=== PATIENT | female | born 1970 | race Caucasian/White ===

== ENCOUNTER 2019-03-18 13:22 | Outpatient (CLI) | payer OTHER | END 2019-03-18 13:28 | disposition home or self-care (01) | LOC: MAMO-SONO 13:22 | DX: Z12.31 Encounter for screening mammogram for malignant neoplasm of breast (principal) ==

== ENCOUNTER 2020-02-07 15:38 | Inpatient (IN) | payer OTHER ==
[~2020-02-07] VITALS: Ht 160 cm; Wt 72.6 kg
== END 2020-02-12 18:59 | disposition home or self-care (01) | DRG 743 ==
LOC: LAB 15:38 → EDSTATUS 18:01 → SURG 18:37
PROVIDERS: Obstetrics & Gynecology Gynecologic Oncology; ADMIT Internal Medicine; ATTEND Internal Medicine
PROC: 0UT70ZZ Resection of Bilateral Fallopian Tubes, Open Approach (ICD-10-PCS; 2020-02-10)
PROC: 0UT20ZZ Resection of Bilateral Ovaries, Open Approach (ICD-10-PCS; 2020-02-10)
PROC: 0DBU0ZZ Excision of Omentum, Open Approach (ICD-10-PCS; 2020-02-10)
PROC: 0UT90ZZ Resection of Uterus, Open Approach (ICD-10-PCS; principal; 2020-02-10 14:15)
DX: D25.1 Intramural leiomyoma of uterus (principal); D25.0 Submucous leiomyoma of uterus; K66.8 Other specified disorders of peritoneum; D64.9 Anemia, unspecified; N72 Inflammatory disease of cervix uteri; N83.12 Corpus luteum cyst of left ovary; N83.11 Corpus luteum cyst of right ovary; N83.8 Other noninflammatory disorders of ovary, fallopian tube and broad ligament

== ENCOUNTER 2020-09-06 10:32 | Outpatient (CLI) | payer OTHER | END 2020-09-06 10:51 | disposition home or self-care (01) | LOC: MAMO-SONO 10:32 | PROVIDERS: ATTEND Obstetrics & Gynecology Gynecologic Oncology | DX: Z12.31 Encounter for screening mammogram for malignant neoplasm of breast (principal); N60.01 Solitary cyst of right breast ==

== ENCOUNTER → 2021-01-31 10:20 | Outpatient (CLI) | payer OTHER | END | disposition home or self-care (01) | LOC: NUCLEAR 10:00 | DX: C50.811 Malignant neoplasm of overlapping sites of right female breast (principal); R06.09 Other forms of dyspnea ==

== ENCOUNTER 2021-02-01 08:33 | Outpatient (CLI) | payer OTHER | END 2021-02-01 08:54 | disposition home or self-care (01) | LOC: TOM 08:33 | PROVIDERS: ATTEND Surgery | DX: R10.84 Generalized abdominal pain (principal); K42.9 Umbilical hernia without obstruction or gangrene; C50.811 Malignant neoplasm of overlapping sites of right female breast ==

== ENCOUNTER 2021-02-21 09:32 | Outpatient (CLI) | payer OTHER | END 2021-02-21 09:37 | disposition home or self-care (01) | LOC: NUCLEAR 09:32 | PROVIDERS: ATTEND Surgery | DX: C50.811 Malignant neoplasm of overlapping sites of right female breast (principal) | CPT/HCPCS: 78306; A9503 ==

== ENCOUNTER 2022-01-24 08:49 | Outpatient (CLI) | payer OTHER | END 2022-01-24 09:35 | disposition home or self-care (01) | LOC: RAD 08:49 | PROVIDERS: ATTEND Internal Medicine | DX: R10.30 Lower abdominal pain, unspecified (principal); K57.92 Diverticulitis of intestine, part unspecified, without perforation or abscess without bleeding; M54.59 Other low back pain; M51.27 Other intervertebral disc displacement, lumbosacral region | CPT/HCPCS: 72148 ==

== ENCOUNTER 2022-05-16 09:07 | Outpatient (CLI) | payer OTHER | END 2022-05-16 09:12 | disposition home or self-care (01) | LOC: SONOGRAMA 09:07 | PROVIDERS: ATTEND Pathology Anatomic Pathology & Clinical Pathology | DX: E04.2 Nontoxic multinodular goiter (principal); E04.1 Nontoxic single thyroid nodule ==